=== PATIENT | male | born 1940 | race Caucasian/White ===

== ENCOUNTER 2019-05-10 22:15 | Emergency (ER) | payer MEDICARE ==
[~2019-05-10] VITALS: Ht 177.8 cm; Wt 93.2 kg
[~2019-05-10 22:15] MED LIST: ACID REFLUX TAB; ASPI-1264 PO; CAR30T PO; FLAX340P PO; MULT-1074 PO; VITC500T PO; ZES10T PO
[2019-05-10 22:34] VITALS: BP 170/56
[2019-05-10] MEDS ORDERED: TETanus/Pertussis (Acell)/Diphther VAC/PF (Tdap-Adult) 0.5ml syringe IMVAC ONE (22:50)
[2019-05-10] MEDS ORDERED: LIDOcaine 1% W/epiNEPHrine 1:200,000 10ml vial IJ ONE (22:50)
== END 2019-05-11 00:13 | disposition home or self-care (01) ==
LOC: ER 22:16
DX: S81.812A Laceration without foreign body, left lower leg, initial encounter (principal); Z98.890 Other specified postprocedural states; Z79.82 Long term (current) use of aspirin; Z79.899 Other long term (current) drug therapy; X58.XXXA Exposure to other specified factors, initial encounter; Y93.89 Activity, other specified; Y92.89 Other specified places as the place of occurrence of the external cause; Y99.8 Other external cause status
CPT/HCPCS: 12002; 12032; 73130; 90471; 90715; 99283; 99284